=== PATIENT | female | born 1995 | race Two or more races ===

== ENCOUNTER 2018-03-16 00:42 | Emergency (ER) | payer SELFPAY ==
--- NOTE | 2018-03-16 01:59 | ED PDOC ---
HPI: Psych/Substance Abuse Time Seen by Provider: 03/16/18 00:53 Chief Complaint (Nursing): Alcohol Ingestion ED Caveat: Acuity of Condition History Per: EMS History/Exam Limitations: intoxication Onset/Duration Of Symptoms: Hrs Additional Complaint(s): Patient admits to drinking, denies drugs. States no injuries, cannot quantify how much alcohol. Hx limited by intoxicatoin. Past Medical History Reviewed: Unable To Obtain Vital Signs: Last Vital Signs Temp 97.2 F L 03/16/18 00:44 Pulse 92 H 03/16/18 00:44 Resp BP 117/74 03/16/18 00:44 Pulse Ox 98 03/16/18 00:44 - Family History Family History: States: Unknown Family Hx - Allergies Allergies/Adverse Reactions: Allergies Allergy/AdvReac Type Severity Reaction Status Date / Time Unobtainable Allergy Verified 03/16/18 00:49 Review of Systems Review Of Systems: ROS cannot be obtained secondary to pt's inabilty to answer questions. Physical Exam - Reviewed Nursing Documentation Reviewed: Yes Vital Signs Reviewed: Yes - Physical Exam Appears: Positive for: Non-toxic, No Acute Distress. Negative for: Well ( Intoxicatd appearing) Head Exam: Positive for: ATRAUMATIC, NORMAL INSPECTION, NORMOCEPHALIC Skin: Positive for: Normal Color, Warm, DRY Eye Exam: Positive for: Normal appearance, EOMI, PERRL (Dilated) ENT: Positive for: Normal ENT Inspection Neck: Positive for: Normal, Painless ROM Cardiovascular/Chest: Positive for: Regular Rate, Rhythm Respiratory: Positive for: CNT, Normal Breath Sounds Gastrointestinal/Abdominal: Positive for: Normal Exam, Soft Back: Positive for: Normal Inspection Extremity: Positive for: Normal ROM Neurologic/Psych: Positive for: Alert. Negative for: Oriented (Falls asleep during questioning) - ECG O2 Sat by Pulse Oximetry: 98 Pulse Ox Interpretation: Normal Medical Decision Making Medical Decision MakinAM A/P: Brought in by EMS for ETOH -no trauma, normal vitals -will observe patient until sober 6:13 -Patient is awake, alert and has a steady gait. -Upon provider evaluation, patient is medically stable and ready for discharge. -Counseling was provided to the patient and she agrees with discharge plan. Disposition - Clinical Impression Clinical Impression: Alcohol abuse - Disposition Referrals: Alcoholics Anonymous [Outside] Disposition: Routine/Home Disposition Time: 06:15 Condition: IMPROVED Instructions: Alcohol Abuse and Alcoholism (DC) Forms: [employer] ([place]ovenian)
[2018-03-16 06:58] VITALS: BP 124/82; PULSE 83; RESP 16; TEMP 97.9
[2018-03-16 22:16] VITALS: O2SAT 98
== END 2018-03-16 06:15 | disposition home or self-care (01) ==
LOC: H.ER 00:42
DX: F10.10 Alcohol abuse, uncomplicated (principal)